=== PATIENT | female | born 1995 | race Asian ===

== ENCOUNTER 2019-08-09 02:35 | Emergency (ER) | payer SELFPAY ==
[~2019-08-09] VITALS: Ht 154.9 cm; Wt 61.2 kg
[2019-08-09 03:05] VITALS: BP_SYST 125
--- NOTE | 2019-08-09 04:20 | NUR ---
pt ambulatory to bed 3 for evaluation
--- NOTE | 2019-08-09 04:21 | NUR ---
Patient came to ER. C/O syncope x today. Patient states "syncope episode at home around 0130 AM , per family witness ~ 30 second, fell face down, lip laceration. " Denies Hx A/O,X4, lip laceration 1 cm, bleeding control, pain rate 3/10, place patient on cardiac exercise specialist.
--- NOTE | 2019-08-09 04:27 | NUR ---
ER Dr. Yen at bedside examining patient.
[2019-08-09 04:40] LABS: BILIRUBIN,URINE 1+ (NEGATIVE); BLOOD, URINE NEGATIVE (NEGATIVE); CLARITY/URINE CLEAR (CLEAR); COLOR,URINE YELLOW (YELLOW); GLUCOSE,URINE NEGATIVE (NEGATIVE); KETONES,URINE TRACE (NEGATIVE); LEUKOCYTE ESTERASE ,URINE NEGATIVE (NEGATIVE); NITRITE, URINE NEGATIVE (NEGATIVE); PROTEIN URINE TRACE (NEGATIVE); UROBILINOGEN,URINE 0.2 (0.2-1.0)
--- NOTE | 2019-08-09 04:40 | NUR ---
# 20 gauge angiocath placed to RAC. Use of asceptic technique. Opsite placed over site. Blood return noted. Blood for lab drawn from site. Flushed with 10 cc of normal saline. No evidence of infiltration noted. Patient tolerated well.
[2019-08-09 04:45] LABS: BACTERIA,URINE FEW /HPF (None Seen); RBC,URINE 0-3 /HPF (0-3); WBC,URINE 0-3 /HPF (0-3)
[2019-08-09 04:46] LABS: URINE SULFO SALICYLIC ACID 1+ (NEGATIVE)
[2019-08-09 04:51] LABS: BASOPHILS % (AUTO) 0.4 % (0.0-2.0); EOSINOPHILS % (AUTO) 0.3 % (0.0-4.0); HEMATOCRIT 37.9 % (36-48); HEMOGLOBIN 12.6 g/dL (12.0-16.0); LYMPHOCYTES # (AUTO) 0.9 K/uL (1.0-5.5); LYMPHOCYTES % (AUTO) 10.7 % (20.5-51.5); MEAN CORPUSCULAR HEMOGLOBIN 29 pg (27-31); MEAN CORPUSCULAR HGB CONC 33 % (32-36); MEAN CORPUSCULAR VOLUME 86 fL (79.0-98.0); MONOCYTES # (AUTO) 0.4 K/uL (0.0-1.0); MONOCYTES % (AUTO) 4.2 % (1.7-9.3); NEUTROPHILS # (AUTO) 7.2 K/uL (1.8-7.7); NEUTROPHILS % (AUTO) 84.4 % (40.0-70.0); PLATELET COUNT (AUTO) 339 K/uL (130-430); RED BLOOD CELL COUNT(AUTO) 4.39 MIL/uL (4.2-6.2); RED CELL DISTRIBUTION WIDTH 13.4 % (9.0-15.0); WHITE BLOOD COUNT (AUTO) 8.6 K/uL (4.8-10.8)
[2019-08-09 05:01] LABS: CREATININE 1.08 mg/dL (0.55-1.30); POTASSIUM 3.9 mmol/L (3.5-5.1)
[2019-08-09 05:12] LABS: ALBUMIN 3.8 g/dL (3.4-4.8); TOTAL BILIRUBIN 0.4 mg/dL (0.0-1.0)
--- NOTE | 2019-08-09 05:37 | NUR ---
Patient has a 1 cm laceration to upper lip. Dr. Yen applied sutures using sterile technique. Edges well approximated. Site cleansed with NSS. Dressing of Bacitracin applied to site. No bleeding noted. Pt tolerated well.
[2019-08-09] MEDS ORDERED: LIDOCAINE 1% 10 MG/ML, 20 ML MDV INJ ONE (05:45)
[2019-08-09] MEDS ORDERED: LIDOCAINE 1%, 20 ML MDV 20 ML ONE (05:52)
[2019-08-09] MEDS ORDERED: BACITRACIN ZINC 15 GM TOPICAL OINTMENT TP ONE (06:15)
--- NOTE | 2019-08-09 06:27 | NUR ---
Milagro called family for a ride.
[2019-08-09 06:31] VITALS: BP_SYST 124
--- NOTE | 2019-08-09 06:31 | NUR ---
Patient given written and verbal discharge instructions and verbalizes understanding. ER MD discussed with patient the results and treatment provided. Patient in stable condition. ID arm band removed. IV catheter removed intact and dressing applied, no active bleeding. Rx of Keflex and Acetaminophen given. Patient educated on pain management and to follow up with PMD. Pain Scale 1/10. Opportunity for questions provided and answered. Medication side effect fact sheet provided.
[2019-08-09] MEDS ORDERED: BACITRACIN 1 GM OINT TP ONE (06:36)
== END 2019-08-09 06:31 | disposition home or self-care (01) ==
LOC: SED 02:35
DX: S01.511A Laceration without foreign body of lip, initial encounter (principal); R55 Syncope and collapse; X58.XXXA Exposure to other specified factors, initial encounter; Y93.89 Activity, other specified; Y92.89 Other specified places as the place of occurrence of the external cause; Y99.8 Other external cause status
CPT/HCPCS: 12011; 36415; 70450; 80053; 81000; 81025; 84702; 85025; 99284; J2001